=== PATIENT | female | born 1980 | race Caucasian/White ===

== ENCOUNTER 2019-03-09 23:47 | Emergency (ER) | payer BC ==
[~2019-03-09] VITALS: Ht 167.6 cm; Wt 76.8 kg
[~2019-03-09 23:47] MED LIST: NO HOME MEDS
[2019-03-09 23:58] VITALS: BP 139/82
[2019-03-10 00:39] LABS: BASOPHILS % (AUTO) 1.4 % (0-1); EOSINOPHILS % (AUTO) 0.9 % (0-6); HEMOGLOBIN 12.3 g/dl (12.0-16.0); LYMPHOCYTES # (AUTO) 0.5 X10'3 (1.1-4.8); LYMPHOCYTES % (AUTO) 26.9 % (21-51); MEAN CORPUSCULAR HEMOGLOBIN 26.9 PG (27.0-31.0); MEAN CORPUSCULAR HGB CONC 33.2 g/dL (33.0-36.5); MEAN CORPUSCULAR VOLUME 81.2 FL (78-98); MEAN PLATELET VOLUME 7.7 FL (7.4-10.4); MONOCYTES # (AUTO) 0.1 X10'3 (0-0.9); MONOCYTES % (AUTO) 7.4 % (2-12); NEUTROPHILS # (AUTO) 1.1 X10'3 (1.8-7.7); NEUTROPHILS % (AUTO) 63.4 % (42-75); PLATELET COUNT 169 X10'3 (140-440); RED BLOOD COUNT 4.56 X10'6 (4.20-5.60); RED CELL DISTRIBUTION WIDTH 17.2 % (11.5-14.5); WHITE BLOOD COUNT 1.8 X10'3 (4.5-11.0)
[2019-03-10 00:48] LABS: ALANINE AMINOTRANSFERASE 170 U/L (12-78); ALBUMIN 3.7 G/DL (3.4-5.0); ALKALINE PHOSPHATASE 102 IU/L (46-116); ANION GAP 7 (8-16); ASPARTATE AMINO TRANSFERASE 169 U/L (10-37); BILIRUBIN,TOTAL 0.7 MG/DL (0.1-1.0); BLOOD UREA NITROGEN 15 MG/DL (7-18); BUN/CREATININE RATIO 15.5 (6.6-38.0); CALCIUM 8.8 MG/DL (8.5-10.1); CHLORIDE 104 MMOL/L (99-107); CREATININE 0.97 MG/DL (0.40-0.90); GLUCOSE 133 MG/DL (70-104); POTASSIUM 3.4 MMOL/L (3.5-5.1); SODIUM 136 MMOL/L (135-145); TOTAL CARBON DIOXIDE 25.5 MMOL/L (24-32); TOTAL PROTEIN 7.5 G/DL (6.4-8.2); eGFR 65 ML/MIN
[2019-03-10 01:01] LABS: TOTAL CELLS COUNTED 100
[2019-03-10 01:02] LABS: ANISOCYTOSIS 1+; ELLIPTOCYTES FEW; PLATELET ESTIMATE NORMAL
== END 2019-03-10 02:04 | disposition home or self-care (01) ==
LOC: ER 23:48
DX: J22 Unspecified acute lower respiratory infection (principal)
CPT/HCPCS: 36415; 71046; 80053; 83605; 85025; 87040; 99284

== ENCOUNTER 2022-09-25 02:32 | Emergency (ER) | payer BC ==
[~2022-09-25] VITALS: Ht 168.9 cm; Wt 77.7 kg
[2022-09-25] MEDS ORDERED: oxyCODONE/APAP 10/325mg tablet PO ONE (04:25)
[2022-09-25] MEDS ORDERED: diazepam 5mg tablet PO ONE (04:25)
[2022-09-25] MEDS ORDERED: ketorolac trometh. 30mg/ml inj. IM ONE (04:25)
[2022-09-25] MEDS ORDERED: HYDR-3973 PO (04:26)
--- NOTE | 2022-09-25 05:14 | NUR ---
PT DISCHARGED FROM ER IN WHEELCHAIR. PT PAIN DECREASED
[2022-09-25 05:29] VITALS: BP 157/93
== END 2022-09-25 05:33 | disposition home or self-care (01) ==
LOC: ER 02:34
DX: M54.31 Sciatica, right side (principal); M54.59 Other low back pain
CPT/HCPCS: 96372; 99283; J1885